=== PATIENT | male | born 1995 | race Caucasian/White ===

== ENCOUNTER 2016-11-29 15:41 | Emergency (ER) | payer SELFPAY | END 2016-11-29 16:20 | disposition home or self-care (01) | LOC: MADERS 15:41 | DX: J06.9 Acute upper respiratory infection, unspecified (principal); F17.210 Nicotine dependence, cigarettes, uncomplicated | CPT/HCPCS: 99283 ==

== ENCOUNTER 2018-01-17 19:12 | Emergency (ER) | payer SELFPAY | END 2018-01-17 19:48 | disposition home or self-care (01) | LOC: MADERS 19:12 | DX: R11.10 Vomiting, unspecified (principal); I10 Essential (primary) hypertension; F17.210 Nicotine dependence, cigarettes, uncomplicated | CPT/HCPCS: 99283 ==

== ENCOUNTER 2018-01-23 17:50 | Emergency (ER) | payer SELFPAY | END 2018-01-23 18:25 | disposition home or self-care (01) | LOC: MADERS 17:50 | DX: K52.9 Noninfective gastroenteritis and colitis, unspecified (principal); F17.210 Nicotine dependence, cigarettes, uncomplicated | CPT/HCPCS: 99283 ==